=== PATIENT | male | born 1990 | race Caucasian/White ===

== ENCOUNTER 2018-01-20 13:21 | Emergency (ER) | payer OTHER ==
[2018-01-20] MEDS: DIPHTH/TET/ACEL PERTUSS (ADULT) 0.5 ML VIAL IM* (14:36)
== END 2018-01-20 15:18 | disposition home or self-care (01) ==
LOC: FTE 13:21
DX: S81.851A Open bite, right lower leg, initial encounter (principal); W54.0XXA Bitten by dog, initial encounter; Y92.9 Unspecified place or not applicable; Z23 Encounter for immunization
CPT/HCPCS: 90471; 90715; 99284-25

== ENCOUNTER 2018-10-06 09:49 | Emergency (ER) | payer OTHER | END 2018-10-06 10:58 | disposition home or self-care (01) | LOC: FTE 10:58 | DX: J06.9 Acute upper respiratory infection, unspecified (principal) | CPT/HCPCS: 99283; Z7502 ==

== ENCOUNTER 2018-10-28 10:29 | Emergency (ER) | payer OTHER | END 2018-10-28 13:37 | disposition home or self-care (01) | LOC: FTE 10:29 | DX: J06.9 Acute upper respiratory infection, unspecified (principal) | CPT/HCPCS: 99282; Z7502 ==